=== PATIENT | female | born 1950 | race Caucasian/White ===

== ENCOUNTER 2021-04-27 16:32 | Emergency (ER) | payer MEDICARE ==
[2021-04-27 17:22] LABS: HEMOGLOBIN 13.8 gm/dl (12.3-15.3); RED BLOOD COUNT 4.31 M/UL (4.00-5.10); WHITE BLOOD COUNT 7.8 K/UL (4.5-11.0)
[2021-04-27 17:44] LABS: BUN/CREATININE RATIO 24 (0-10)
[2021-04-27] MEDS ORDERED: CEPHALEXIN500 MG PO (18:43)
== END 2021-04-27 18:55 | disposition home or self-care (01) ==
LOC: ER1 16:32
PROVIDERS: Physician Assistant
DX: R41.82 Altered mental status, unspecified (principal); N39.0 Urinary tract infection, site not specified
CPT/HCPCS: 70450; 71045; 80053; 80307; 81001; 82550; 82553; 83874; 84484; 85025; 93005; 99285; G0480

== ENCOUNTER 2021-05-22 20:02 | Emergency (ER) | payer MEDICARE ==
[~2021-05-22 20:02] MED LIST: CEPHALEXIN500 MG PO
[2021-05-22] MEDS ORDERED: WHEELCHAIR (22:32)
== END 2021-05-22 22:45 | disposition home or self-care (01) ==
LOC: ER1 20:02
DX: S89.92XA Unspecified injury of left lower leg, initial encounter (principal); I10 Essential (primary) hypertension; W01.0XXA Fall on same level from slipping, tripping and stumbling without subsequent striking against object, initial encounter
CPT/HCPCS: 73564; 96372; 99283; J2270

== ENCOUNTER 2021-10-09 14:15 | Emergency (ER) | payer MEDICARE ==
[~2021-10-09 14:15] MED LIST changes: +WHEELCHAIR
[2021-10-09 15:00] LABS: HEMOGLOBIN 13.1 gm/dl (12.3-15.3); RED BLOOD COUNT 4.07 M/UL (4.00-5.10); WHITE BLOOD COUNT 6.8 K/UL (4.5-11.0)
[2021-10-09 15:19] LABS: BUN/CREATININE RATIO 37 (0-10)
== END 2021-10-09 17:30 | disposition home or self-care (01) ==
LOC: ER1 14:15
PROVIDERS: Emergency Medicine
DX: R55 Syncope and collapse (principal); R06.02 Shortness of breath; R41.0 Disorientation, unspecified; Z20.822 Contact with and (suspected) exposure to COVID-19; I10 Essential (primary) hypertension
CPT/HCPCS: 70450; 71045; 80053; 82550; 82553; 83735; 83874; 84484; 85025; 85379; 93005; 99284; U0002

== ENCOUNTER 2021-11-02 10:42 | Emergency (ER) | payer MEDICARE ==
[2021-11-02 13:15] LABS: HEMOGLOBIN 12.7 gm/dl (12.3-15.3); RED BLOOD COUNT 4.01 M/UL (4.00-5.10); WHITE BLOOD COUNT 5.5 K/UL (4.5-11.0)
[2021-11-02 13:33] LABS: BUN/CREATININE RATIO 23 (0-10)
== END 2021-11-02 16:38 | disposition home or self-care (01) ==
LOC: ER1 10:42
PROVIDERS: Physician Assistant
DX: R60.0 Localized edema (principal); I10 Essential (primary) hypertension; E78.5 Hyperlipidemia, unspecified
CPT/HCPCS: 80053; 83880; 85025; 99283

== ENCOUNTER → 2021-11-26 | Outpatient (CLI) | payer MEDICARE | LOC: EXRD 13:56 → HEART 5 15:00 | DX: R60.9 Edema, unspecified (principal); R00.1 Bradycardia, unspecified | CPT/HCPCS: 93306; 93970 ==

== ENCOUNTER 2021-11-28 14:17 | Emergency (ER) | payer MEDICARE | END 2021-11-28 18:35 | disposition left against medical advice (07) | LOC: ER1 14:17 | DX: S80.11XA Contusion of right lower leg, initial encounter (principal); R22.43 Localized swelling, mass and lump, lower limb, bilateral; X58.XXXA Exposure to other specified factors, initial encounter | CPT/HCPCS: 73590; 73600; 99284 ==

== ENCOUNTER 2022-03-26 13:41 | Emergency (ER) | payer MEDICARE ==
[2022-03-26 16:03] LABS: HEMOGLOBIN 12.7 gm/dl (12.3-15.3); RED BLOOD COUNT 3.96 M/UL (4.00-5.10); WHITE BLOOD COUNT 6.9 K/UL (4.5-11.0)
[2022-03-26 16:27] LABS: BUN/CREATININE RATIO 44 (0-10)
== END 2022-03-26 17:49 | disposition home or self-care (01) ==
LOC: ER1 13:41
PROVIDERS: Family Medicine
DX: M79.604 Pain in right leg (principal); F03.90 Unspecified dementia, unspecified severity, without behavioral disturbance, psychotic disturbance, mood disturbance, and anxiety; N28.9 Disorder of kidney and ureter, unspecified; I10 Essential (primary) hypertension
CPT/HCPCS: 73560; 73590; 80053; 83605; 85025; 96360; 96372; 99283; J1630; J2250; J7030

== ENCOUNTER 2022-04-29 07:06 | Emergency (ER) | payer MEDICARE ==
[2022-04-29 07:40] LABS: HEMOGLOBIN 12.9 gm/dl (12.3-15.3); RED BLOOD COUNT 4.08 M/UL (4.00-5.10); WHITE BLOOD COUNT 7.1 K/UL (4.5-11.0)
[2022-04-29 09:51] LABS: BUN/CREATININE RATIO 29 (0-10)
== END 2022-04-29 11:55 | disposition home or self-care (01) ==
LOC: ER1 07:06
PROVIDERS: Emergency Medicine
DX: F03.90 Unspecified dementia, unspecified severity, without behavioral disturbance, psychotic disturbance, mood disturbance, and anxiety (principal); Z51.81 Encounter for therapeutic drug level monitoring
CPT/HCPCS: 70450; 71045; 80053; 83735; 84484; 85025; 85610; 85730; 86140; 93005; 99283